=== PATIENT | male | born 1980 | race Caucasian/White ===

== ENCOUNTER 2023-02-08 22:32 | Emergency (ER) | payer MEDICAID, SELFPAY ==
[2023-02-08 22:40] VITALS: BP 150/93; PULSE 83; RESP 18; TEMP 36.6; O2SAT 97; BMI 38.2
[2023-02-08 22:53] VITALS: BP 148/90; RESP 16; TEMP 36.9; O2SAT 97
[2023-02-09 00:22] LABS: MANUAL DIFF FLAG NO
[2023-02-09 00:23] LABS: Basophils Absolute Auto 0.1 X10*3/uL (0.0-0.2); Basophils Percent Auto 1.1 % (0-2); Eosinophils Absolute Auto 0.5 X10*3/uL (0.0-0.4); Eosinophils Percent Auto 4.6 % (0-4); Hematocrit 46.7 % (42.0-52.0); Hemoglobin 15.8 g/dl (14.0-18.0); Imm Gran Abs Auto 0.03 X10*3/uL (0.00-0.03); Imm Gran Pct Auto 0.3 % (0.0-0.4); Lymphocytes Absolute Auto 3.4 X10*3/uL (1.2-4.9); Lymphocytes Percent Auto 33.8 % (20-40); Mean Corpuscular HGB Conc 33.8 g/dl (31.0-36.0); Mean Corpuscular Hemoglobin 31.4 pg (27.0-33.0); Mean Corpuscular Volume 92.8 fL (80.0-98.0); Mean Platelet Volume 9.8 fL (9.4-12.4); Monocytes Absolute Auto 1.2 X10*3/uL (0.1-1.2); Monocytes Percent Auto 12.2 % (2-11); Neutrophils Absolute Auto 4.9 x10*3/uL (2.0-8.3); Platelet Count 509 X10*3/uL (160-400); Red Blood Count 5.03 X10*6/uL (4.60-5.80); Red Cell Distribution Width 13.1 % (11.0-16.0); White Blood Count 10.2 X10*3/uL (4.8-10.8)
[2023-02-09 00:31] LABS: Lactic Acid 1.8 mmol/L (0.5-2.0)
[2023-02-09 00:38] LABS: Anion Gap 14 (12-20); Blood Urea Nitrogen 12 mg/dL (9-16); Calcium 10.1 mg/dL (8.4-10.2); Carbon Dioxide 26 mmol/L (22-29); Chloride 103 mmol/L (96-108); Creatinine Clr Calc Pharmacy 197.3; Estimated Glomerular Filt Rate > 60; Glucose Random 90 mg/dL (60-115); Potassium 4.4 mmol/L (3.3-5.1); Sodium 139 mmol/L (135-145)
--- NOTE | 2023-02-09 00:44 | ED_ITS ---
HPI - General Adult General Chief complaint: Extremity Injury, Lower Stated complaint: Right leg pain/ cellulitis? Time Seen by Provider: 02/08/23 23:55 Source: patient Mode of arrival: ambulatory History of Present Illness HPI narrative: 42-year-old male with significant past medical history splenectomy as well as an insulinoma who presents with concerns of attending a tech to convention on the weekend of February where he states that he underwent a tattoo for 32 hours and then upon standing states that he passed out. Patient was evaluated at [facility] at that time diagnosed with a vasovagal response but patient states that they were not listening to him about his right lower extremity pain. Patient states that he then went to [facility] where he was admitted and started on antibiotics and was just discharged yesterday against medical advice. He was discharged with antibiotics and now shows up with complaints about his right lower leg pain without fevers or chills and he is somewhat concerned about increased erythema to the right medial thigh. Patient also describes some right-sided abdominal discomfort of unclear etiology. Related Data Allergies Allergy/AdvReac Type Severity Reaction Status Date / Time morphine Allergy Unknown Verified 02/08/23 22:40 Review of Systems Review of Systems: Pertinent positives and negatives as stated in HPI PMF Past Medical History Source: nursing notes reviewed Social History Social History Alcohol intake: never Smoked in Last 30 Days: No Use of substances other than those prescribed or required for medical reasons: Yes Substance Use Type: Marijuana Substance Use Frequency: Daily Advance Directives: No Advance Directives Information Provided: Yes Physical Exam ED Vital Signs: Vital Signs - 24 hr 02/08/23 22:40 02/08/23 22:53 Temperature 97.8 F 98.5 F Pulse Rate 83 Respiratory Rate 18 16 Blood Pressure 150/93 H 148/90 H Pulse Oximetry 97 97 Oxygen Delivery Method Room Air Room Air BMI result Body Mass Index 38.2 VITAL SIGNS: Reviewed. GENERAL: Elevated BMI, Well developed, well nourished, in no acute distress. HEAD: Normocephalic/atraumatic EYES: PERRLA, EOMI EARS: Ext canals without abnormality NOSE: Nares patent bilateral OROPHARYNX: no oral lesions noted, posterior pharynx clear NECK: Supple, no adenopathy LUNGS: Normal breath sounds. No adventitious sounds or accessory muscle use. SpO2<97> CARDIOVASCULAR: Regular rate and rhythm without noted murmurs, no JVD or lower extremity edema. ABDOMEN: Soft, tenderness at the right side of the abdomen without obvious hernia/erythema, non-distended with bowel sounds. MUSCULOSKELETAL: No tenderness, deformities, or effusions noted on gross inspection. EXTREMITIES: No cyanosis, clubbing or edema; RIGHT LOWER EXTREMITY: There is an extensive new issue tech to that extends from the posterior right ankle proximal into the thigh area, compartments feel soft, there is noted marker lines to the medial aspect of the right thigh with soft compartments minimal erythema without induration that is all within the marking, the posterior calf portion of the tattoo appears very dried but soft compartments deep and when observing the color distribution there appears to be consistent color distribution located on the posterior thigh area down into the calf. SKIN: Inspection of the skin reveals no rashes NEUROLOGIC: Alert and oriented x 4. Strength and sensation to light touch were grossly intact x 4. Medications Administered Discontinued Medications Generic Name Dose Route Start Last Admin Trade Name Freq PRN Reason Stop Dose Admin Bacitracin 1 appl 02/09/23 00:33 02/09/23 01:22 Bacitracin Oint 0.9 Gm Packet TOPICAL 02/09/23 00:34 1 appl ONCE ONE Administration Protocol Medical Decision Making Medical Decision Making MDM Narrative: 42-year-old male with history and clinical presentation most likely secondary to poor support with significant intentional injury in the context of tattoos to the right lower extremity. Due to the consistent use of color distribution I do not believe that this is a reaction to a particular dye or ink, all compartments are soft I do not appreciate any induration and no significant erythema that I do not feel is likely associated with extensive tattooing. My initial intervention is going to be applying bacitracin with Telfa and application Vitaliy wrap for compression relief. Will obtain lab work to include D-dimer although I have very low clinical suspicion that there is any DVT and I am also requesting records from [facility]. Patient is otherwise hemodynamically stable. 0134: I reviewed the documentation from [facility] which demonstrates an elevated D-dimer at that time as well, they did do a CT scan (02/07) of the right lower leg which was negative for deep abscess an demonstrated superficial inflammation. CT chest with contrast negative for PE (02/04/2023), and patient was evaluated by the infectious disease doctor, Dr. Almeida who is also f latoya with [facility]. This senior information security consultant does not feel the patient had any cellulitis, however to facilitate his concerns he was discharged from [facility] on Augmentin and doxycycline. 0141: At this time after review of all data points, I do not feel that this is acute cellulitis, I do not feel that patient has any acute pathology at this time other than the possibility of undergoing on a very extensive tattoo. Patient's tattoo was addressed with compression and otherwise I do not feel that the elevated D-dimer has anything to do with other than the current superficial inflammatory response at the right lower extremity. And this decision is arrived at after review of all documentation here at this visit in addition to the documentation at [facility]. Patient is otherwise discharged home in stable condition with instructions to follow-up with his primary care provider. On re-evaluation patient is feeling better. Differential Diagnosis Please see the discussion above Lab Data Please see the discussion above 02/09/23 00:16 02/09/23 00:16 Labs: Lab Results 02/09/23 02/09/23 02/09/23 Range/Units 00:16 00:16 00:16 WBC 10.2 (4.8-10.8) X10*3/uL RBC 5.03 (4.60-5.80) X10*6/uL Hgb 15.8 (14.0-18.0) g/dl Hct 46.7 (42.0-52.0) % MCV 92.8 (80.0-98.0) fL MCH 31.4 (27.0-33.0) pg MCHC 33.8 (31.0-36.0) g/dl RDW 13.1 (11.0-16.0) % Plt Count 509 H (160-400) X10*3/uL MPV 9.8 (9.4-12.4) fL Immature Gran % (Auto) 0.3 (0.0-0.4) % Neut % (Auto) 48.0 (45-73) % Lymph % (Auto) 33.8 (20-40) % [place] % (Auto) 12.2 H (2-11) % Eos % (Auto) 4.6 H (0-4) % Baso % (Auto) 1.1 (0-2) % Lymph # (Auto) 3.4 (1.2-4.9) X10*3/uL [place] # (Auto) 1.2 (0.1-1.2) X10*3/uL Eos # (Auto) 0.5 H (0.0-0.4) X10*3/uL Baso # (Auto) 0.1 (0.0-0.2) X10*3/uL Abs Immat Gran (auto) 0.03 (0.00-0.03) X10*3/uL Absolute Neuts (auto) 4.9 (2.0-8.3) x10*3/uL Absolute Nucleated RBC 0.000 (0.0-0.012) X10*3/uL Nucleated RBC % (auto) 0.0 (0.0-0.2) /100WBC D-Dimer High Sensitivty NG/ML Sodium 139 (135-145) mmol/L Potassium 4.4 (3.3-5.1) mmol/L Chloride 103 (96-108) mmol/L Carbon Dioxide 26 (22-29) mmol/L Anion Gap 14 (12-20) BUN 12 (9-16) mg/dL Creatinine 0.83 (0.5-1.4) mg/dL Estim Creat Clear Calc 197.3 Estimated GFR > 60 Random Glucose 90 (60-115) mg/dL Lactic Acid 1.8 (0.5-2.0) mmol/L Calcium 10.1 (8.4-10.2) mg/dL 02/09/23 Range/Units 00:51 WBC (4.8-10.8) X10*3/uL RBC (4.60-5.80) X10*6/uL Hgb (14.0-18.0) g/dl Hct (42.0-52.0) % MCV (80.0-98.0) fL MCH (27.0-33.0) pg MCHC (31.0-36.0) g/dl RDW (11.0-16.0) % Plt Count (160-400) X10*3/uL MPV (9.4-12.4) fL Immature Gran % (Auto) (0.0-0.4) % Neut % (Auto) (45-73) % Lymph % (Auto) (20-40) % [place] % (Auto) (2-11) % Eos % (Auto) (0-4) % Baso % (Auto) (0-2) % Lymph # (Auto) (1.2-4.9) X10*3/uL [place] # (Auto) (0.1-1.2) X10*3/uL Eos # (Auto) (0.0-0.4) X10*3/uL Baso # (Auto) (0.0-0.2) X10*3/uL Abs Immat Gran (auto) (0.00-0.03) X10*3/uL Absolute Neuts (auto) (2.0-8.3) x10*3/uL Absolute Nucleated RBC (0.0-0.012) X10*3/uL Nucleated RBC % (auto) (0.0-0.2) /100WBC D-Dimer High Sensitivty 486 NG/ML Sodium (135-145) mmol/L Potassium (3.3-5.1) mmol/L Chloride (96-108) mmol/L Carbon Dioxide (22-29) mmol/L Anion Gap (12-20) BUN (9-16) mg/dL Creatinine (0.5-1.4) mg/dL Estim Creat Clear Calc Estimated GFR Random Glucose (60-115) mg/dL Lactic Acid (0.5-2.0) mmol/L Calcium (8.4-10.2) mg/dL External Record Review External record reviewed: Outpatient record, Prior outpatient labs, Prior outpatient radiology and Outside ED record Discharge Plan Discharge Clinical Impression: Pain in right leg Patient Disposition: Home, Self-Care Instructions: Leg Pain (ED) Additional Instructions: 1. Resume all medications that you have been prescribed. 2. Keep all follow-up appointments that have been arranged for you. You are being discharged with a list of possible primary care providers within the [place] system. Please feel free to reach out these providers on Friday. 3. Recommend compression to this right lower extremity in the manner that it was applied by your nurse and continue to apply antibiotic ointment. Return to the ER for any worsening symptoms. Referrals: Kimberly Haas MD [Physician] -
[2023-02-09 01:03] LABS: D Dimer High Sensitivity 486 NG/ML
[2023-02-09] MEDS: Bacitracin Oint 0.9 GM PACKET 1 APPL TOPICAL (01:22)
--- NOTE | 2023-02-09 02:47 | PC.NURSE ---
Bacitracin, telfa, and becky wrap applied to left lower leg. Patient tolerated procedure well. Patient reports he is unable to bear weight on his left leg d/t cramp like pain. Dr. Christy notified. recommended crutches for ambulation/weight bearing. Patient refused. Dr. Christy is aware.
== END 2023-02-09 02:51 | disposition home or self-care (01) ==
PROVIDERS: Emergency Provider Student in an Organized Health Care Education/Training Program
DX: M79.661 Pain in right lower leg (principal); F12.90 Cannabis use, unspecified, uncomplicated
CPT/HCPCS: 36415; 80048; 83605; 85025; 85379; 99283; 99284